=== PATIENT | female | born 1955 | race Caucasian/White ===

== ENCOUNTER 2017-09-06 08:45 | Emergency (ER) | payer OTHER ==
[~2017-09-06] VITALS: Ht 154.9 cm; Wt 83.1 kg
[2017-09-06 08:48] VITALS: TEMP 36.5; Ht 154.9 cm; Wt 83.1 kg
[2017-09-06] MEDS ORDERED: AMLO-114 PO (08:57)
[2017-09-06] MEDS ORDERED: AMLODIPINE BESYLATE 5 MG TAB PO ONE (09:30)
[2017-09-06 09:31] VITALS: O2SAT 97
[2017-09-06 09:51] LABS: BASO % 0.7 %; BASO ABS # 0.05 K/uL (0-0.2); COMPLETE YES; EOS % 3.4 %; HEMATOCRIT 39.6 % (37-47); IG% 0.3 %; LYMPH % 23.7 %; MEAN CELL VOLUME 85.7 fL (80-100); MEAN CORPUSCULAR HEMOGLOBIN 28.8 pg (25-34); MEAN CORPUSCULAR HGB CONC 33.6 g/dl (32-36); MEAN PLATELET VOLUME 9.3 fL (7.4-10.4); MONO % 7.7 %; NEUT % 64.2 %; PLATELET COUNT 251 K/uL (130-400); RED BLOOD COUNT 4.62 M/uL (4.2-5.4); WHITE BLOOD COUNT 6.74 K/uL (4.8-10.8)
[2017-09-06 09:58] LABS: ALT/SGPT 21 U/L (12-78); BLOOD UREA NITROGEN 9 mg/dl (7-18); BUN/CREATININE RATIO 11.9 (10-20); CALCIUM 9.1 mg/dl (8.5-10.1); CARBON DIOXIDE 26 mmol/L (21-32); CHLORIDE 105 mmol/L (98-107); CREATININE 0.72 mg/dl (0.60-1.20); GLUCOSE 93 mg/dl (70-99); POTASSIUM 3.8 mmol/L (3.5-5.1); SODIUM 138 mmol/L (136-145)
--- NOTE | 2017-09-06 10:00 | DIAGNOSTIC IMAGING REPORT ---
CHEST ONE VIEW PORTABLE HISTORY: 61 years-old Female CHEST PAIN acute atypical chest pain COMPARISON: None available TECHNIQUE: Portable AP view of the chest FINDINGS: Cardiac silhouette is moderately enlarged. No overt pulmonary edema, pneumothorax, pleural effusion or lobar airspace consolidation. There is a large hiatal hernia with intrathoracic stomach. Linear subsegmental left basilar opacities suggest associated atelectasis/scarring. Bones of the chest appear grossly intact. Degenerative changes are seen within the shoulders and spine. Cholecystectomy clips seen within the right upper abdomen. IMPRESSION: 1. Cardiomegaly without overt pulmonary edema. 2. Large hiatal hernia with linear subsegmental left basilar opacities suggesting associated atelectasis or scarring. The above report was generated using voice recognition software. It may contain grammatical, syntax or spelling errors. Electronically signed by: Montrell Alex M.D. 09/06/2017 9:59 AM Dictated Date/Time: 09/06/2017 9:57 AM
[2017-09-06 10:09] LABS: ALKALINE PHOSPHATASE 153 U/L (45-117); AST/SGOT 16 U/L (15-37); FERRITIN 41.5 ng/ml (8.0-388.0)
[2017-09-06] MEDS ORDERED: OPTIRAY 320 IV PRN (11:00)
[2017-09-06 12:57] VITALS: BP 130/98; PULSE 86; O2SAT 96
--- NOTE | 2017-09-06 14:22 | EMERGENCY ROOM VISIT NOTE ---
History First contact with patient: 08:54 Chief Complaint: HYPERTENSION Stated Complaint: LIGHT HEADED Nursing Triage Summary: pt reports feeling dizzy yesterday around 1730 continued to feel dizzy. pt reports feeling off. has headache. denies any n/v. pt report noticing elevated bp has not taken med yet this am . reports has been under alots of stress, just moved here, no dr, new job, finding place to live History of Present Illness The patient is a 61 year old female who presents to the Emergency Room with complaints of lightheadedness since last evening. The patient reports a mild headache as well. The patient reports being under a lot of stress, moving to the area 3 weeks ago. She is still trying to arrange housing, and rides with her sister from [place] to [place] where she works at [employer]. She reports being under a lot of stress. The patient reports a history of von Willebrand's disease and anemia. She previously has taken Integra, but was recently told to just take an [id number] vitamin to keep her iron levels elevated. 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 The patient also reports that her blood pressure has recently been elevated. She has been taking Norvasc 10 mg daily for the past 13 years. She reports that her blood pressure has been elevated over the past few weeks. The patient is not eligible for healthcare coverage for another month, and has not established a local family doctor. The patient denies any chest pain, shortness of breath, nausea, runny nose, sinus congestion, sore throat or fever. She denies any recent head injury, or pain radiating into the neck or back. She denies any prior history of vertigo, and reports that she feels like she is going to pass out as opposed to everything spinning around her. The patient denies any loss of consciousness since her symptoms started yesterday. She rates her discomfort a 6 out of 10. Review of Systems HEENT: Denies visual problems, hearing loss, tinnitus. Denies difficulty swallowing or oral lesions. PULMONARY: Denies cough, shortness of breath, sputum production or hemoptysis. CARDIOVASCULAR: Denies chest pain, palpitations, dyspnea on exertion, orthopnea or peripheral edema. GASTROINTESTINAL: Denies diarrhea, constipation, nausea, vomiting, or abdominal pain. GENITOURINARY: Denies dysuria, frequency, urgency or nocturia. NEUROLOGIC: Denies history of epilepsy, CVA, TIA or chronic headaches. MUSCULOSKELETAL: Denies history of joint tenderness/swelling. SKIN: Denies rashes or lesions. PSYCHIATRIC: Denies history of depression or mental illness. ENDOCRINE: Denies history of diabetes or thyroid disorders. Past Medical/Surgical History Medical Problems: (1) Hypertension (2) Hypertension (3) Von Willebrands disease Surgical Problems: (1) No history of previous surgery Family History FH: coronary artery disease FH: hypertension Social History Smoking Status: Never Smoker Alcohol Use: none Marital Status: single Housing Status: lives with family Occupation Status: employed Current/Historical Medications Scheduled Amlodipine (Norvasc), 10 MG PO QAM Physical Exam Vital Signs Date Time Temp Pulse Resp B/P (MAP) Pulse Ox O2 Delivery O2 Flow Rate FiO2 09/06/17 12:57 86 20 130/98 96 09/06/17 12:15 78 20 157/95 97 Room Air 09/06/17 10:30 72 20 140/84 93 Room Air 09/06/17 10:00 69 20 155/88 93 Room Air 09/06/17 09:38 70 23 147/88 95 Room Air 09/06/17 09:32 73 18 166/96 97 Room Air 09/06/17 09:31 97 Room Air 09/06/17 09:06 73 09/06/17 08:48 36.5 75 18 181/93 98 Room Air Physical Exam CONSTITUTIONAL: Healthy and well nourished. Alert and oriented X 3 with positive affect. Patient does not appear in any acute distress. HEENT: Normocephalic, atraumatic. Pupils equal, round and reactive. Ears and nares are clear. No knots diagnosed noted. OROPHARYNX: Mucous membranes are moist. NECK: Full active range of motion without discomfort. No JVD or carotid bruits. RESPIRATORY: Clear to auscultation bilaterally with no wheezing, crackles, rhonchi or stridor. CARDIOVASCULAR: Regular rate and rhythm with no murmurs, rubs or gallops. GASTROINTESTINAL: Bowel sounds present in all quadrants. No tenderness to palpation or palpable pulsatile masses. MUSCULOSKELETAL: Full range of motion of all joints without discomfort. INTEGUMENTARY: No rash or other significant dermatologic conditions noted. NEUROLOGIC: No focal neurologic deficits noted. No ataxia with ambulation. Medical Decision & Procedures ER Provider Diagnostic Interpretation: My interpretation of an ECG shows a normal sinus rhythm of 73 bpm with a few PACs. No ST elevation noted. My interpretation of a portable chest x-ray does not show any consolidations or pneumothorax. Moderate cardiomegaly is noted. Radiologist report is as follows : CHEST ONE VIEW PORTABLE HISTORY: 61 years-old Female CHEST PAIN acute atypical chest pain COMPARISON: None available TECHNIQUE: Portable AP view of the chest FINDINGS: Cardiac silhouette is moderately enlarged. No overt pulmonary edema, pneumothorax, pleural effusion or lobar airspace consolidation. There is a large hiatal hernia with intrathoracic stomach. Linear subsegmental left basilar opacities suggest associated atelectasis/scarring. Bones of the chest appear grossly intact. Degenerative changes are seen within the shoulders and spine. Cholecystectomy clips seen within the right upper abdomen. IMPRESSION: 1. Cardiomegaly without overt pulmonary edema. 2. Large hiatal hernia with linear subsegmental left basilar opacities suggesting associated atelectasis or scarring. Laboratory Results 09/06/17 09:00 Red Blood Count 4.62, Mean Corpuscular Volume 85.7, Mean Corpuscular Hemoglobin 28.8, Mean Corpuscular Hemoglobin Concent 33.6, Mean Platelet Volume 9.3, Neutrophils (%) (Auto) 64.2, Lymphocytes (%) (Auto) 23.7, Monocytes (%) (Auto) 7.7, Eosinophils (%) (Auto) 3.4, Basophils (%) (Auto) 0.7, Neutrophils # (Auto) 4.32, Lymphocytes # (Auto) 1.60, Monocytes # (Auto) 0.52, Eosinophils # (Auto) 0.23, Basophils # (Auto) 0.05 09/06/17 09:00 Test 09/06/17 09:00 09/06/17 09:26 White Blood Count 6.74 K/uL (4.8-10.8) Red Blood Count 4.62 M/uL (4.2-5.4) Hemoglobin 13.3 g/dL (12.0-16.0) Hematocrit 39.6 % (37-47) Mean Corpuscular Volume 85.7 fL (80-100) Mean Corpuscular Hemoglobin 28.8 pg (25-34) Mean Corpuscular Hemoglobin Concent 33.6 g/dl (32-36) Platelet Count 251 K/uL (130-400) Mean Platelet Volume 9.3 fL (7.4-10.4) Neutrophils (%) (Auto) 64.2 % Lymphocytes (%) (Auto) 23.7 % Monocytes (%) (Auto) 7.7 % Eosinophils (%) (Auto) 3.4 % Basophils (%) (Auto) 0.7 % Neutrophils # (Auto) 4.32 K/uL (1.4-6.5) Lymphocytes # (Auto) 1.60 K/uL (1.2-3.4) Monocytes # (Auto) 0.52 K/uL (0.11-0.59) Eosinophils # (Auto) 0.23 K/uL (0-0.5) Basophils # (Auto) 0.05 K/uL (0-0.2) RDW Standard Deviation 41.2 fL (36.4-46.3) RDW Coefficient of Variation 13.2 % (11.5-14.5) Immature Granulocyte % (Auto) 0.3 % Immature Granulocyte # (Auto) 0.02 K/uL (0.00-0.02) Prothrombin Time 10.0 SECONDS (9.0-12.0) Prothromb Time International Ratio 1.0 (0.9-1.1) Activated Partial Thromboplast Time 26.1 SECONDS (21.0-31.0) Partial Thromboplastin Ratio 1.0 D-Dimer 570 ug/L FEU (0-500) Anion Gap 7.0 mmol/L (3-11) Est Creatinine Clear Calc Drug Dose 80.2 ml/min Estimated GFR () 104.8 Estimated GFR (Non- 90.4 BUN/Creatinine Ratio 11.9 (10-20) Calcium Level 9.1 mg/dl (8.5-10.1) Ferritin 41.5 ng/ml (8.0-388.0) Total Bilirubin 1.0 mg/dl (0.2-1) Direct Bilirubin 0.2 mg/dl (0-0.2) Aspartate Amino Transf (AST/SGOT) 16 U/L (15-37) Alanine Aminotransferase (ALT/SGPT) 21 U/L (12-78) Alkaline Phosphatase 153 U/L (45-117) Creatine Kinase MB 1.3 ng/ml (0.5-3.6) Troponin I < 0.015 ng/ml (0-0.045) Total Protein 7.8 gm/dl (6.4-8.2) Albumin 3.9 gm/dl (3.4-5.0) Lipase 121 U/L (73-393) Thyroid Stimulating Hormone (TSH) 1.110 uIu/ml (0.300-4.500) Creatine Kinase MB Ratio (0-3.0) The above labs were reviewed and were grossly normal. Hemoglobin and ferritin are normal. CBC and partial renal profile are grossly normal. Troponin and TSH are normal. D-dimer is mildly elevated. Medications Administered Medications (Trade) Dose Ordered Sig/Dolores Route Start Time Stop Time Status Last Admin Dose Admin Amlodipine Besylate (Norvasc Tab) 10 mg NOW ONCE PO 09/06/17 09:30 09/06/17 09:31 DC 09/06/17 09:39 10 MG ED Course Patient history and physical exam were performed. Nurse's notes were reviewed. Initial blood pressure in triage was 181/93. The patient's blood pressures did trend downward while in the emergency department, but still remained elevated above normal level. IV access was established, and labs were drawn. An ECG shows a normal sinus rhythm with occasional PACs. Review of labs did not show any anemia, and ferritin level is normal. The patient is euthyroid. There is no leukocytosis. D-dimer was mildly elevated. Because of the patient's mildly elevated d-dimer level, I did suggest a chest CT angiography to rule out pulmonary embolus, which can also cause the symptoms. I also discussed a head CT as well. The patient did elect to undergo chest CT angiography, however there was a long delay in this procedure because of multiple patient orders from the emergency department. Was eventually called by the patient's nurse, stating that she refused CT imaging, and wanted to leave. When upper back to speak with the patient, she voiced understanding of my concern for elevated d-dimer and risk of pulmonary embolus. The patient stated that she would rather call her kieselguhr regenerator operator with lab results for further guidance. The patient appeared to be of sound mind and reason during our conversation, and still felt well enough to go home. The patient was instructed to return to the emergency department as needed for worsening symptoms, or if her kieselguhr regenerator operator recommends CT studies. I do believe that the patient's symptoms are likely secondary to her hypertension. She was encouraged to continue taking her Norvasc 10 mg daily. She will be provided contact information for Dr. Montoya, next up for outpatient unassigned follow- up. The patient was again encouraged to return to the emergency department as needed. The patient was happy with plan of care, and voiced understanding of all discharge instructions. Medical Decision Patient presents to the emergency department with complaint of primarily lightheadedness. Her workup today is not suggestive of anemia or acute cardiac event. Her d-dimer is elevated, and certainly concern was addressed with the patient for possible pulmonary embolus. The patient does have a history of von Willebrand's disease. Although I do not suspect intracranial bleed or other acute neurologic symptoms, the patient did refuse CT imaging. The patient is also afebrile, and I do not see any sources of infection on exam or through history. The patient was encouraged to take her antihypertensive medications. Medication Reconcilliation Current Medication List: was personally reviewed by me Blood Pressure Screening Patient's blood pressure: Elevated blood pressure Blood pressure disposition: Referred to PCP Impression Primary Impression: Lightheadedness Additional Impression: History of von Willebrand's disease Departure Information Referrals No Doctor, Assigned (PCP) Patient Instructions My [facility] Health Problem Qualifiers
== END 2017-09-06 12:59 | disposition home or self-care (01) ==
LOC: C.EDB 08:48
DX: R42 Dizziness and giddiness (principal); I10 Essential (primary) hypertension; R07.89 Other chest pain; I51.7 Cardiomegaly; K44.9 Diaphragmatic hernia without obstruction or gangrene; R51 Headache; D68.8 Other specified coagulation defects